=== PATIENT | female | born 1985 | race Caucasian/White ===

== ENCOUNTER → 2016-05-24 | Outpatient (CLI) | payer BC ==
[~2016-05-24] MED LIST: PRED20TA2 PO; PRENTAB26 PO
[2016-05-24 09:58] LABS: BASO % 0.5 %; BASO ABS # 0.03 K/uL (0-0.2); COMPLETE YES; EOS % 1.1 %; HEMATOCRIT 38.2 % (37-47); IG% 0.2 %; LYMPH % 25.5 %; MEAN CELL VOLUME 86.6 fL (80-100); MEAN CORPUSCULAR HEMOGLOBIN 30.2 pg (25-34); MEAN CORPUSCULAR HGB CONC 34.8 g/dl (32-36); MEAN PLATELET VOLUME 10.7 fL (7.4-10.4); MONO % 8.6 %; NEUT % 64.1 %; PLATELET COUNT 263 K/uL (130-400); RED BLOOD COUNT 4.41 M/uL (4.2-5.4); WHITE BLOOD COUNT 6.66 K/uL (4.8-10.8)
[2016-05-24 12:17] LABS: URINE APPEARANCE CLEAR (CLEAR); URINE BILIRUBIN NEG (NEG); URINE COLOR YELLOW; URINE NITRITE NEG (NEG); URINE SPECIFIC GRAVITY 1.025 (1.000-1.030); UROBILINOGEN NEG (NEG)
[2016-05-24 12:34] LABS: MANUAL MICROSCOPIC REQUIRED? NO; REVIEW REQ? NO
[2016-05-26 03:10] LABS: CHLAMYDIA TRACH RNA*** NOT DETECTED (NOT DETECTED); GC (NEIS GONORRHOEAE)RNA** NOT DETECTED (NOT DETECTED)
== END | disposition home or self-care (01) ==
LOC: C.LAB1850 09:09
PROVIDERS: ATTEND Obstetrics & Gynecology
DX: Z34.01 Encounter for supervision of normal first pregnancy, first trimester (principal)

== ENCOUNTER 2016-07-10 12:06 | Emergency (ER) | payer BC ==
[~2016-07-10] VITALS: Ht 165.1 cm; Wt 76.7 kg
[2016-07-10 12:10] VITALS: TEMP 36.6; Ht 165.1 cm; Wt 76.7 kg
[2016-07-10 12:54] VITALS: O2SAT 99
[2016-07-10 13:10] LABS: BASO % 0.1 %; BASO ABS # 0.01 K/uL (0-0.2); COMPLETE YES; EOS % 0.7 %; HEMATOCRIT 38.9 % (37-47); IG% 0.2 %; LYMPH % 18.7 %; LYMPH ABS # 1.77 K/uL (1.2-3.4); MEAN CELL VOLUME 86.6 fL (80-100); MEAN CORPUSCULAR HEMOGLOBIN 30.5 pg (25-34); MEAN CORPUSCULAR HGB CONC 35.2 g/dl (32-36); MEAN PLATELET VOLUME 9.9 fL (7.4-10.4); MONO % 7.6 %; NEUT % 72.7 %; PLATELET COUNT 252 K/uL (130-400); RED BLOOD COUNT 4.49 M/uL (4.2-5.4); WHITE BLOOD COUNT 9.49 K/uL (4.8-10.8)
[2016-07-10 13:28] LABS: C-REACTIVE PROTEIN 1.01 mg/dl (0-0.29); CALCIUM 8.2 mg/dl (8.5-10.1); CREATININE 0.61 mg/dl (0.60-1.20); POTASSIUM 3.7 mmol/L (3.5-5.1)
[2016-07-10 13:30] LABS: ALB/GLOB RATIO 0.8 (0.9-2)
[2016-07-10] MEDS ORDERED: PRED20TA2 PO (13:48)
--- NOTE | 2016-07-10 13:49 | EMERGENCY ROOM VISIT NOTE ---
History First contact with patient: 12:21 Chief Complaint: ALLERGIC REACTION Stated Complaint: SWELLING/ITCHING-POSS. ALLERGIC REACTION Nursing Triage Summary: pt c/o allergic reaction. c/o wrist and hands, lip swelling. yesterday thought was bug bites. has red ross on legs. pt reports al; weekned was gardening and yesterday thought was mosquitos bites. pt reports she is 15 weeks History of Present Illness The patient is a 31 year old female who presents to the Emergency Room via private vehicle with complaints of "swelling/itchingpossible allergic reaction". The patient states that she is 15 weeks . She notes that this past weekend she was gardening, and is certain that she did not become exposed to poison ingrid or bugs, and late Saturday night she notes that her right knee began to feel itchy. Then Saturday morning she noticed red little dots on the right anterior knee, and behind her ears. This morning she states that the right knee became very itchy and it seemed to spread up her thigh to her hips, shoulders and elbows. There is also bilateral redness noted to the knees. She states that she was wearing gloves in the garden. She denies any pain, she does states that her knee feels as if it is warm and then becomes cold. She is here today because 20 minutes prior to arrival she began with upper lip localized swelling. She spoke with her A/C TECHNICIAN nurse, of the [facility] physician group who instructed her to come here to the emergency department. She denies any new soaps, foods, or any new changes in her behavior. She denies any trouble breathing, chest pain, shortness of breath, fevers or chills. She did take 2 Benadryl 20 minutes prior to arrival. She denies any vaginal bleeding, cramps or spotting. Review of Systems A complete 10-point Review of Systems was discussed with the patient, with pertinent positives and negatives listed in the History of Present Illness. All remaining Review of Systems questions can be considered negative unless otherwise specified. Past Medical/Surgical History No pertinent past medical history Family History Diabetes, heart disease, cancer Social History Smoking Status: Never Smoker Social History: Patient was at home with Current/Historical Medications Scheduled Prednisone (Prednisone Tab), 2 TAB PO DAILY Allergies Coded Allergies: No Known Allergies (Unverified , 5/23/17) Physical Exam Vital Signs Date Time Temp Pulse Resp B/P Pulse Ox O2 Delivery O2 Flow Rate FiO2 07/10/16 14:23 68 18 107/65 100 07/10/16 13:36 71 18 110/61 99 Room Air 07/10/16 12:54 99 Room Air 07/10/16 12:10 36.6 83 18 121/80 99 Room Air Physical Exam VITAL SIGNS - Vital signs and nursing notes were reviewed. afebrile, normotensive, non-tachycardic and saturating 99%. GENERAL -31-year-old female appearing her stated age who is in no acute distress. Communicates well with provider and answers questions appropriately. SKIN - there is a small non-raised patch of erythema overlying the anterior aspect of the distal wrist. There is also very minimal edema noted to a very small 1 cm x 1 cm region of the anterior lip. HEAD - NC/AT. There are small punctate nonraised erythematous regions that are subcentimeter in nature scattered throughout the arms. EYES - Sclera anicteric. Palpebral conjunctiva pink and moist with no injection noted. EARS - No deformities of external structures noted on gross examination bilaterally. NOSE - Midline and without cyanosis. No epistaxis or purulent drainage noted. MOUTH/OROPHARYNX - Without perioral cyanosis. Buccal mucosa pink and moist and without leukoplakia. Tongue midline with equal elevation of palate bilaterally. No tonsillar hypertrophy, erythema, or exudates noted. Good Dentition noted. NECK - Neck with FROM. Supple to palpation. No lymphadenopathy noted. No nuchal rigidity, Airways patent without edema. There is a small amount of edema of the upper lip centrally. LUNGS - Chest wall symmetric without accessory muscle use, intercostals retractions, or central cyanosis. Normal vesicular breath sounds CTA B/L. No wheezes, rales, or rhonchi appreciated. CARDIAC - RRR with S1/S2. No murmur, rubs, or gallops appreciated. ABDOMEN - Abdominal contour without pulsations or visible masses. BS normoactive all four quadrants. No tenderness, palpable masses, hepatosplenomegaly, or ascites noted. EXTREMITIES - No clubbing or peripheral cyanosis. No pretibial edema present. +5 /5 strength noted in UE/LE bilaterally. NEUROLOGIC - Cranial nerves II through XII grossly intact. Medical Decision & Procedures Laboratory Results 07/10/16 12:50 Red Blood Count 4.49, Mean Corpuscular Volume 86.6, Mean Corpuscular Hemoglobin 30.5, Mean Corpuscular Hemoglobin Concent 35.2, Mean Platelet Volume 9.9, Neutrophils (%) (Auto) 72.7, Lymphocytes (%) (Auto) 18.7, Monocytes (%) (Auto) 7.6, Eosinophils (%) (Auto) 0.7, Basophils (%) (Auto) 0.1, Neutrophils # (Auto) 6.90, Lymphocytes # (Auto) 1.77, Monocytes # (Auto) 0.72, Eosinophils # (Auto) 0.07, Basophils # (Auto) 0.01 07/10/16 12:50 Test 07/10/16 12:50 White Blood Count 9.49 K/uL (4.8-10.8) Red Blood Count 4.49 M/uL (4.2-5.4) Hemoglobin 13.7 g/dL (12.0-16.0) Hematocrit 38.9 % (37-47) Mean Corpuscular Volume 86.6 fL (80-100) Mean Corpuscular Hemoglobin 30.5 pg (25-34) Mean Corpuscular Hemoglobin Concent 35.2 g/dl (32-36) Platelet Count 252 K/uL (130-400) Mean Platelet Volume 9.9 fL (7.4-10.4) Neutrophils (%) (Auto) 72.7 % Lymphocytes (%) (Auto) 18.7 % Monocytes (%) (Auto) 7.6 % Eosinophils (%) (Auto) 0.7 % Basophils (%) (Auto) 0.1 % Neutrophils # (Auto) 6.90 K/uL (1.4-6.5) Lymphocytes # (Auto) 1.77 K/uL (1.2-3.4) Monocytes # (Auto) 0.72 K/uL (0.11-0.59) Eosinophils # (Auto) 0.07 K/uL (0-0.5) Basophils # (Auto) 0.01 K/uL (0-0.2) RDW Standard Deviation 41.6 fL (36.4-46.3) RDW Coefficient of Variation 13.1 % (11.5-14.5) Immature Granulocyte % (Auto) 0.2 % Immature Granulocyte # (Auto) 0.02 K/uL (0.00-0.02) Erythrocyte Sedimentation Rate 12 mm/hr (0-21) Anion Gap 8.0 mmol/L (3-11) Est Creatinine Clear Calc Drug Dose 136.9 ml/min Estimated GFR () 140.0 Estimated GFR (Non- 120.8 BUN/Creatinine Ratio 10.0 (10-20) Calcium Level 8.2 mg/dl (8.5-10.1) Total Bilirubin 0.3 mg/dl (0.2-1) Aspartate Amino Transf (AST/SGOT) 13 U/L (15-37) Alanine Aminotransferase (ALT/SGPT) 17 U/L (12-78) Alkaline Phosphatase 55 U/L (45-117) C-Reactive Protein 1.01 mg/dl (0-0.29) Total Protein 6.9 gm/dl (6.4-8.2) Albumin 3.1 gm/dl (3.4-5.0) Globulin 3.8 gm/dl (2.5-4.0) Albumin/Globulin Ratio 0.8 (0.9-2) Medical Decision Patient was seen and evaluated as above. After obtaining a thorough history and physical examination IV access was initiated and the above workup was performed. I wanted to establish IV access case the patient would have anaphylaxis. Basic blood work was drawn as well as inflammatory markers. CBC reveals no leukocytosis or anemia. ESR is normal at 12. CMP reveals chloride 109, BUN low at 6, calcium low at 8.2, C-reactive protein high at 1.01. Albumin low at 3.1. No emergent findings on the CMP patient was reevaluated with no worsening of her symptoms. Benefits versus risk of administered prednisone was discussed with the patient as well as my attending. The patient was fully made aware that prednisone is category D. The patient was provided with a short-term prescription, she noted only if her symptoms worsened which he take his medication. She is to continue the Benadryl for the next few days. She was educated upon the importance of follow-up. She was educated upon today's findings, educated upon worrisome symptoms which to return , had questions prior to discharge and was discharged, condition. I suspect that her symptoms today are likely secondary to contact dermatitis as she was kneeling in the garden. A clear etiology for the inflammation of the upper lip is not available at this time however I do not suspect anaphylaxis. Patient's O2 sat was 100% prior to departure. In evaluation treatment this patient following differential diagnoses were entertained: Anaphylaxis, contact dermatitis, allergic reaction, vasculitis, among others. Impression Primary Impression: Allergic reaction Additional Impression: Contact dermatitis Departure Information Dispostion Home / Self-Care Condition GOOD Prescriptions Prednisone (Prednisone Tab) 20 Mg Tab 2 TAB PO DAILY for 5 Days, #10 TAB Prov: David Valle PA-C 07/10/16 Referrals No Doctor, Assigned (PCP) Patient Instructions [facility] Additional Instructions You have been treated in the Emergency Department for an Allergic Reaction. You have been treated and monitored in the Emergency Department appropriately. You should take Benadryl (diphenhydramine) according to the package insert. This medication is [id number] and you will NOT need a prescription to purchase this at your local pharmacy. This is to prevent a rebound allergic reaction in the event that allergens are still present in your system. You have been prescribed Prednisone 40 mg to be taken orally once a day for the next 5days. This is an anti-inflammatory medicine to be used to help minimize your symptoms. You should take the COMPLETE course of the medication. ONLY IF WORSENING OF SYMPTOMS WE DISCUSSED THIS MAY BE HARMFUL DURING . As with every Emergency Department visit, you should follow-up with your primary care provider/OBGYN in 2-3 days for reevaluation. Return to the Emergency Department if your current symptoms worsen despite treatment course outlined above, or if you develop any of the following symptoms : wheezing, tongue or face swelling, tightness in your throat, shortness of breath, vaginal spotting, cramping, or fainting. Please return to the emergency department with any new/concerning symptoms. ER PHONE NUMBER: [phone] Problem Qualifiers
[2016-07-10 14:23] VITALS: BP 107/65; PULSE 68; O2SAT 100
== END 2016-07-10 14:24 | disposition home or self-care (01) ==
LOC: C.EDB 12:07 → C.EDC 14:24
DX: L23.9 Allergic contact dermatitis, unspecified cause (principal); O99.711 Diseases of the skin and subcutaneous tissue complicating pregnancy, first trimester; Z3A.15 15 weeks gestation of pregnancy; Z83.3 Family history of diabetes mellitus; Z80.9 Family history of malignant neoplasm, unspecified

== ENCOUNTER → 2016-07-17 | Outpatient (CLI) | payer BC ==
[~2016-07-17] MED LIST changes: -PRED20TA2 PO
[2016-07-17 16:12] LABS: GTGD 50 Grams
[2016-07-21 09:35] LABS: AFP CONCENTRATION 40.2 NG/ML; AFP MULTIPLE OF MEDIAN 1.42; AFPTS GESTATIONAL AGE 15.6 WEEKS; AFPTS INSULIN DEP DIABETIC? NO; AFPTS MATERNAL WT 169 LBS; ALPHA-FETOPROTEIN RACE CAUCASIAN=W; ESTRIOL MULTIPLE OF MEDIAN 1.04; HISTORY OF NTD NO; INHIBIN A 152 PG/ML; INHIBIN A MOM 0.92; REPEAT SAMPLE? NO; hCG MULTIPLE OF MEDIAN 0.94
== END | disposition home or self-care (01) ==
LOC: C.LAB1850 14:16
PROVIDERS: ATTEND Obstetrics & Gynecology
DX: Z34.02 Encounter for supervision of normal first pregnancy, second trimester (principal)

== ENCOUNTER → 2016-10-16 | Outpatient (CLI) | payer BC ==
[2016-10-16 17:22] LABS: HEMATOCRIT 37.1 % (37-47)
[2016-10-16 18:05] LABS: GTGD 50 Grams
[2016-10-16 18:44] LABS: URINE APPEARANCE CLEAR (CLEAR); URINE BILIRUBIN NEG (NEG); URINE COLOR YELLOW; URINE EPITHELIAL CELL AUTO >30 /lpf (0-5); URINE NITRITE NEG (NEG); URINE PH 8.5 (4.5-7.5); URINE SPECIFIC GRAVITY 1.015 (1.000-1.030); UROBILINOGEN NEG (NEG)
[2016-10-16 18:50] LABS: MANUAL MICROSCOPIC REQUIRED? NO; REVIEW REQ? NO
== END | disposition home or self-care (01) ==
LOC: C.LAB1850 15:30
PROVIDERS: ATTEND Obstetrics & Gynecology
DX: Z34.03 Encounter for supervision of normal first pregnancy, third trimester (principal)

== ENCOUNTER → 2016-10-24 | Outpatient (CLI) | payer BC | END | disposition home or self-care (01) | LOC: C.LAB1850 07:17 | PROVIDERS: ATTEND Obstetrics & Gynecology | DX: O28.1 Abnormal biochemical finding on antenatal screening of mother (principal); Z3A.00 Weeks of gestation of pregnancy not specified ==

== ENCOUNTER → 2016-12-13 | Outpatient (CLI) | payer BC | END | disposition home or self-care (01) | LOC: C.LABSPEC 17:39 | PROVIDERS: ATTEND Obstetrics & Gynecology | DX: Z34.03 Encounter for supervision of normal first pregnancy, third trimester (principal) ==

== ENCOUNTER 2016-12-31 15:31 | Inpatient (IN) | payer BC ==
[~2016-12-31] VITALS: Ht 165.1 cm; Wt 86.2 kg
[2016-12-31] MEDS ORDERED: LACTATED RINGER'S 1000ML 1,000 ML IV SCH (16:11)
[2016-12-31] MEDS ORDERED: LACTATED RINGER'S 1000ML 1,000 ML IV PRN (16:11)
[2016-12-31 16:44] LABS: HEMATOCRIT 39.5 % (37-47); MEAN CELL VOLUME 89.2 fL (80-100); MEAN CORPUSCULAR HEMOGLOBIN 31.8 pg (25-34); MEAN CORPUSCULAR HGB CONC 35.7 g/dl (32-36); MEAN PLATELET VOLUME 9.9 fL (7.4-10.4); PLATELET COUNT 205 K/uL (130-400); RED BLOOD COUNT 4.43 M/uL (4.2-5.4); WHITE BLOOD COUNT 9.95 K/uL (4.8-10.8)
[2016-12-31] MEDS ORDERED: PRENTAB26 PO (16:55)
[2016-12-31 16:56] VITALS: Ht 165.1 cm; Wt 86.2 kg
[2016-12-31] MEDS ORDERED: LACTATED RINGER'S 1000ML 500 ML IV PRN (17:54)
[2016-12-31] MEDS ORDERED: OXYTOCIN 30 UNITS/500ML NSS IV PRN (18:00)
[2017-01-01] MEDS ORDERED: DIPHTHERIA/TETANUS/PERTUSSIS 0.5 ML SYR/VIAL IM. ONE (08:15)
[2017-01-01] MEDS ORDERED: ACETAMINOPHEN 325 MG TAB PO PRN (08:15)
[2017-01-01] MEDS ORDERED: ACETAMINOPHEN/CODEINE 300/30MG TAB PO PRN ×2 (08:15)
[2017-01-01] MEDS ORDERED: LANOLIN OINT EXT PRN ×2 (08:15)
[2017-01-01] MEDS ORDERED: HYDROCORTISONE ACETATE 25 MG SUPP PR PRN (08:15)
[2017-01-01] MEDS ORDERED: SUPERCREAM 0.870 % 15GM JAR EXT PRN (08:15)
[2017-01-01] MEDS ORDERED: OXYTOCIN 30 UNITS/500ML NSS IV PRN (08:15)
[2017-01-01] MEDS ORDERED: BENZOCAINE 20% AER SPR 82.5 GM CAN EXT PRN (08:15)
--- NOTE | 2017-01-01 08:30 | DELIVERY SUMMARY ---
DATE OF OPERATION: 01/01/2017 The patient dilated to complete and pushed to deliver a viable female infant, Apgars 9 and 9 via over second-degree perineal laceration. Shoulders and body delivered through with maternal expulsive efforts. Cords clamped once pulsation stopped. Infant to maternal abdomen. Cord doubly clamped and cut. Laceration was repaired in the usual fashion after 1% local lidocaine anesthesia with 3-0 Vicryl. Cervix and sulci intact. At approximately 20 minutes, placenta attempted to be delivered. Cord ultimately avulsed and placenta had to be manually extracted. Uterus swept x1 and no remaining products of conception. Dilute Pitocin began and hemostasis was adequate. EBL 300 mL. Mother and baby stable on recovery. I attest to the content of the Intraoperative Record and any orders documented therein. Any exception s are noted below.
[2017-01-01 11:25] VITALS: BP 118/78; PULSE 103; TEMP 36.9; O2SAT 96
[2017-01-01 16:45] VITALS: BP 116/80; PULSE 106; TEMP 36.6
[2017-01-01] MEDS: DOCUSATE SODIUM 100 MG CAP PO SCH (20:01)
[2017-01-01] MEDS: IBUPROFEN 600 MG TAB PO PRN (20:04)
[2017-01-01 20:30] VITALS: BP 115/75; PULSE 102; TEMP 36.7
[2017-01-01 23:40] VITALS: BP 118/83; PULSE 84; TEMP 36.4; O2SAT 98
[2017-01-02 03:00] VITALS: BP 118/78; PULSE 86; TEMP 36.8; O2SAT 97
--- NOTE | 2017-01-02 06:56 | OB/GYN Progress Note ---
ELECTRONIC SCALE ASSEMBLER AND TESTER Progress Note Date of Service Jan 02, 2017. Subjective conversation w/ patient, physical exam, chart review, lab review Ambulation: ambulating normally Voiding: no voiding problems Passing Gas: Yes Diet Tolerance: Regular Diet Lochia: Moderate Feeding Type: Breast Feeding Pain: 3/10 pain with movement Review of Systems Constitutional: No fever, No chills Respiratory: No shortness of breath Cardiac: No chest pain Abdomen: No nausea, No vomiting Female : No dysuria Objective Vital Signs Date Time Temp Pulse Resp B/P (MAP) Pulse Ox O2 Delivery O2 Flow Rate FiO2 01/02/17 03:00 36.8 86 16 118/78 (91) 97 Room Air 01/01/17 23:40 36.4 84 18 118/83 (95) 98 Room Air 01/01/17 23:40 98 Room Air 01/01/17 20:30 36.7 102 16 115/75 (88) Room Air 01/01/17 20:30 Room Air 01/01/17 16:45 Room Air 01/01/17 16:45 36.6 106 16 116/80 (92) Room Air 01/01/17 11:25 36.9 103 16 118/78 (91) 96 Room Air 01/01/17 11:25 Room Air Physical Exam General Appearance: WELL-APPEARING Respiratory/Chest: lungs clear, normal breath sounds Cardiovascular: regular rate, rhythm Abdomen: normal bowel sounds, non tender, soft Fundus: Firm, Relation to Umbilicus (2 FB below) Extremities: non-tender, no pedal edema Assessment and Plan Day Number: 1 Continue Routine Care: Resident Physician Supervision Note: I interviewed and examined the patient. Discussed with Dr. Cruz and agree with findings and plan as documented in the note. Any exceptions or clarifications are listed here: [None] Documented By: Marisela Mcintyre A/P: This is a 31 y/o female, , s/p [normal vaginal delivery] day 1. She is ambulating and clinically stable to discharge - Vital signs are reviewed and WNL (Tmax 36.9 ) - Last Hgb 14.1 - Blood type B+, GBS neg, Rubella Immune - No signs of depression. - Routine care - Discussed resting, feeding, pain control, mastitis, control, follow up in 6 weeks and reasons to call sooner, if necessary. - Continue with pain medication as needed, and continue vitamins. - Encourage breast feeding and educate about breast feeding - Patient understands and keen for home. - Plan to discharge home Resident Involvement: Resident Care Provided Care Provided: OB Delivery
--- NOTE | 2017-01-02 06:57 | Discharge Instructions ---
Discharge Instructions Date of Service Jan 02, 2017. Admission Reason for Admission: Labor Check Discharge Discharge Diagnosis / Problem: after vaginal delivery Discharge Goals Goal(s): Routine recovery after delivery Medications Continue Dispensed Medications: supercream, dermaplast, tucks, lansinoh Activity Recommendations Activity Limitations: per Instructions/Follow-up section . Instructions / Follow-Up Instructions / Follow-Up ACTIVITY RECOMMENDATIONS: * Gradual return to full activity over the next 2-3 weeks. * No lifting - nothing heavier than baby over the next 2-3 weeks. * Do not engage in vigorous exercise, sexual activity or sports until cleared by your physician. * Do not drive or operate any motorized equipment until cleared by your physician. * You may shower/bathe daily. MEDICATIONS: For discomfort or pain, you may use Acetaminophen (Tylenol), Ibuprofen (Advil), or Naproxen (Aleve) following the package directions. For constipation you may use Colace following the package directions. BREAST CARE: If you are not breast feeding: * Wear a supportive bra 24 hours a day for one to two weeks. * Avoid stimulating your breasts and nipples as much as possible during the first few weeks after delivery. * When taking a shower, have the warm water hit your back, not breasts. * When your breasts feel full, apply ice packs. Usually three to four times a day helps ease the discomfort. * Take a mild pain medication (Tylenol / Motrin) when you are uncomfortable. If breast feeding: * Use breast milk to lubricate nipples. Lansinoh cream may be used for sore nipples. You do not need to remove cream prior to breast feeding. If using a different brand of cream, check the label for directions regarding removal of cream prior to nursing. * Wear a supportive bra. * If having problems with breasts or breast feeding, call a technical sales consultant or your health care provider. EPISIOTOMY CARE: After delivery, if you have an episiotomy (stitches), the following steps will ease discomfort and aid healing. * For the first 24 hours after delivery, place ice packs next to your episiotomy to help reduce swelling. * After the first 24 hour-period, sitz baths, either portable or in the tub, are suggested. A shower with a shower arm sprayed over the episiotomy may be comforting. * Lesley care should be done after each voiding and bowel movement. Squirt warm water from a plastic bottle over the perineum (region of the body between the anus and urinary opening) and pat dry. * Use Dermoplast to ease discomfort. Shake container. Bandy directly over the episiotomy. Place a Tucks on a clean sanitary pad next to your episiotomy. SPECIAL CARE INSTRUCTIONS: When you are discharged from the hospital, it is important for you to follow the instructions listed below: * During the first week at home, you should be able to care for yourself and your baby. In addition, the usual light household activities are encouraged. * Limit your activities to the way you feel. Do not try to clean the house or move furniture. Be sensible. * If you actively engage in sports and have done so up until the time of your delivery, you may resume these activities as soon as you feel able. This may take up to one month or even longer. Use good judgment. * Continue to take your vitamins for at least six weeks after the of your baby. * Your diet need not be limited unless you were on a special diet before your delivery. Breast-feeding mothers need around 2500 calories per day and at least 64-80 ounces of fluid per day (8 to 10 glasses). * You should eat foods from the four major food groups. Crash diets or fad diets are to be avoided. Eating lean meats, fresh fruits and vegetables, low-fat dairy products, high fiber foods and a regular exercise program, will help you get back to your pre- weight without putting your health at risk. * Constipation is sometimes a problem after delivery. Take a mild laxative as needed. If breast feeding, Milk of Magnesia is acceptable to use. You may use a suppository or Fleets enema if no episiotomy. * A daily shower or tub bath is suggested. Be sure to thoroughly and gently dry the perineum. * A bloody vaginal discharge will usually continue until around four weeks post . A small amount of bleeding may continue for as long as six weeks. Vaginal discharge changes from the bright red bleeding after delivery to pink then brownish and finally yellowish-pink before becoming white and disappearing. * Bleeding may increase with activity. Your first period may come in 4-8 weeks. If you are breast feeding, your period may be delayed even longer. * [place] (sex) can begin whenever both you and your partner feel comfortable and do not have any form of genital infection. It is recommended that you wait at least six weeks for internal and external healing to occur. If you have questions, please talk to your health care practitioner. A condom should be used to prevent infection and . * Foreplay, gentle intercourse and lubrication is very important the first several times to prevent pain. A water-based lubricant such as K-Y jelly or Astroglide may be used. * If you have RH negative blood and your baby is RH positive, you will receive RHOGAM by injection prior to discharge. The nurse will give you a card to keep with you that has the date and place that you received RHOGAM after delivery. * During your care, you had a Rubella screen done to check for the presence of rubella antibodies in your blood. If your test was negative, you will receive a Rubella vaccine prior to discharge. This vaccine may cause a fever, soreness at the injection site and flu-like symptoms. If these symptoms persist, notify your health care practitioner. is not advised for one month after a Rubella vaccine. * Verbalizes understanding of car seat law as reviewed with patient nursing. * Car Seat hand-out given and reviewed with patient by nursing. * Shaken baby information reviewed with patient by nursing. Call you doctor if: * Heavy bleeding (saturating several pads an hour) or passing clots the size of your fist. * A fever >101 degrees F (38.3 degrees C) on two occasions four hours apart and /or chills. * Unusual pain in the pelvic or vaginal areas. * "Baby Blues" lasting longer than two weeks. If you have any questions or concerns, call your health care practitioner at . FOLLOW UP VISIT: * Please call the office at to schedule a 6 week examination. It is important you keep this appointment. It is important for you to make arrangements for either yearly or twice yearly check-ups thereafter. Current Hospital Diet Patient's current hospital diet: Regular OB Diet Discharge Diet Recommended Diet: Regular Diet Pending Studies Studies pending at discharge: no Medical Emergencies . Who to Call and When: Medical Emergencies: If at any time you feel your situation is an emergency, please call 911 immediately. . Non-Emergent Contact Non-Emergency issues call your: Control Cabinet Assembler Call Non-Emergent contact if: temperature is above 101, your pain is not controlled . . "Provider Documentation" section prepared by Abhishek Cruz. . VTE Core Measure Inpt VTE Proph given/why not?: Treatment not indicated
[2017-01-02] MEDS: DOCUSATE SODIUM 100 MG CAP PO SCH (07:28)
[2017-01-02] MEDS: IBUPROFEN 600 MG TAB PO PRN ×2 (07:29→12:17)
[2017-01-02 07:30] VITALS: BP 106/72; PULSE 77; TEMP 36.2; O2SAT 97
[2017-01-02 09:44] VITALS: BP 106/72; PULSE 77; TEMP 36.2
[2017-01-02 13:48] VITALS: BP_DIAS 72; PULSE 77; TEMP 36.2
== END 2017-01-02 13:48 | disposition home or self-care (01) | DRG 775 ==
LOC: C.LD 15:31 → C.OPB 15:31 → C.LD 16:13 → C.OPB 16:13 → C.OBG 01-01 11:01 → EDSTATUS 01-04 15:29
PROVIDERS: ADMIT Obstetrics & Gynecology; ATTEND Obstetrics & Gynecology
PROC: 0KQM0ZZ Repair Perineum Muscle, Open Approach (ICD-10-PCS; principal; 2017-01-01)
PROC: 10E0XZZ Delivery of Products of Conception, External Approach (ICD-10-PCS; principal; 2017-01-01)
DX: O42.92 Full-term premature rupture of membranes, unspecified as to length of time between rupture and onset of labor (principal); O70.1 Second degree perineal laceration during delivery; Z3A.39 39 weeks gestation of pregnancy; Z37.0 Single live birth

== ENCOUNTER → 2017-02-13 | Outpatient (CLI) | payer BC | END | disposition home or self-care (01) | LOC: C.PAPS 11:15 | PROVIDERS: ATTEND Obstetrics & Gynecology | DX: Z01.419 Encounter for gynecological examination (general) (routine) without abnormal findings (principal) ==

== ENCOUNTER 2018-12-04 07:31 | Inpatient (IN) ==
[2018-12-04] MEDS ORDERED: OXYTOCIN 30 UNITS/500 ML BAG IV PRN ×3 (07:54→14:49)
[2018-12-04] MEDS ORDERED: LACTATED RINGER'S 1,000 ML IV PRN (07:54)
[2018-12-04 08:13] LABS: Hematocrit (blood only) 38.4 % (37-47); Hemoglobin 13.1 g/dL (12.0-16.0); Mean Corpuscular Hemoglobin 30.4 pg (25-34); Mean Corpuscular Volume 89.1 fL (80-100); Mean Platelet Volume 10.1 fL (7.4-10.4); Platelet Count 192 K/uL (130-400); RDW Coefficient of Variation 13.4 % (11.5-14.5); RDW Standard Deviation 43.4 fL (36.4-46.3); Red Blood Count 4.31 M/uL (4.2-5.4); White Blood Count 8.45 K/uL (4.8-10.8)
[2018-12-04 08:15] LABS: Mean Corpuscular Hgb Conc 34.1 g/dL (32-36)
--- NOTE | 2018-12-04 08:53 | History & Physical Report ---
Date of Service December 04, 2018 Assessment & Plan (1) Encounter for induction of labor: (2) Post term at 41 weeks gestation: admit, iv, labs, pitocin, plan arom when able. reviewed her plan, will try to honor what i can. plans hypnobirth. History of Present Illness Chief Complaint: induction for postdates. Primary Care Provider: Nichole Link, DO 33yo with cc of planned induction for postdates. no rom, vb. +fm. no ctx pnc c/b 1. postdates 2. echo done due to missed neto and wnl but incomplete, can consider pp pnl rh pos, ri, gbs neg obh: x 1 gynh: nl paps, no stds pmh: migraines psh: wisdom teeth sh: no tob/etoh/drugs fh: no marylin anom or mr Allergies Allergy/AdvReac Type Severity Reaction Status Date / Time No Known Allergies Allergy Verified 12/04/18 07:54 Home Medications Home Medications Medication Instructions Recorded Confirmed Type PNV cmb#95-ferrous fumarate-FA 1 tab PO DAILY 12/04/18 12/04/18 History [] calcium carbonate [Tums] 200 mg PO QID PRN 12/04/18 12/04/18 History Patient History Social History Preferred Language: French Remelt Sugar Boiler Required: No Beliefs That Will Affect Care: None marital status: Current Living Situation: Spouse and Family Current Living Situation Comment: lives with and 2 yo daughter Other Information That Helps Us Care for You: Yes ( plan) Feels Safe at Home: Yes Safety Concerns: Feels Safe At This Time Smoking Status: Never smoker Do You Dip or Chew Tobacco: No ; Second Hand Exposure: No ; Tobacco Cessation Education Requested by Patient: No Hx Alcohol Use: No Hx Substance Use: No Review of Systems no fever no change in stools no abnormal vaginal bleeding Physical Exam Constitutional: WD/WN, vitals as above Respiratory: normal respiratory effort, lungs clear to auscultation Cardiovascular: Rate/Rhythm: regular rate and regular rhythm Gastrointestinal (Abdomen): Percussion/Palpation: abdomen soft (gravid) Neurologic: grossly normal Psychiatric: A+Ox3, euthymic affect Genitourinary: OB Exam Abdomen: + estimated weight (7-8#) Manual OB Exam: + cervical dilation (3-4), + cervical effacement 50% and + station -2 OB Exam Monitor Tracing: + external FHT monitor used (140 mod variability), + external uterine monitor used (irrit, and irreg ctx) and + category I Results & Data Vital Signs (Past 12 Hours) Vital Signs Pulse BP 12/04/18 08:50 96 H 114/78 12/04/18 07:45 125 H 108/77
--- NOTE | 2018-12-04 10:42 | Labor Progress Brief Note ---
Date of Service December 04, 2018 Subjective Reason For Note: Routine Evaluation feeling some ctx. pitocin at 5. Assessment & Plan (1) Post term at 41 weeks gestation: (2) Encounter for induction of labor: see how arom advances labor, c/w pitocin, categ 1 fetus. Physical Exam Constitutional: WD/WN, vitals as above Genitourinary: Manual OB Exam: + cervical dilation 4 cm, + cervical effacement 60%, + station -2 and + amniotic fluid (arom) clear OB Exam Monitor Tracing: + external FHT monitor used (130 moderate variability), + external uterine monitor used (q2 ), + category I and + normal FHT variability pit at 5 Results & Data Vital Signs (Past 12 Hours) Vital Signs Temp Pulse Resp BP 12/04/18 09:54 81 100/63 12/04/18 08:50 96 H 114/78 12/04/18 07:45 98.1 F 125 H 16 108/77
--- NOTE | 2018-12-04 13:18 | Labor Progress Brief Note ---
Date of Service December 04, 2018 Subjective Reason For Note: Requested By Patient wanting cx exam. pitocin infusing. Assessment & Plan (1) Post term at 41 weeks gestation: (2) Encounter for induction of labor: c/w pit. categ 1. good cx change. Physical Exam Constitutional: WD/WN, vitals as above Genitourinary: Manual OB Exam: + cervical dilation 7 cm, + cervical effacement 80% and + station -1 OB Exam Monitor Tracing: + external FHT monitor used (135 mod variability), + external uterine monitor used (q2), + category I and + normal FHT variability pit at 13 Results & Data Vital Signs (Past 12 Hours) Vital Signs Temp Pulse Resp BP 12/04/18 12:40 98.2 F 20 12/04/18 12:39 68 20 103/70 12/04/18 11:49 86 114/70 12/04/18 10:40 85 106/66 12/04/18 10:39 98.6 F 12/04/18 09:54 81 100/63 12/04/18 08:50 96 H 114/78 12/04/18 07:45 98.1 F 125 H 16 108/77
[2018-12-04] MEDS ORDERED: ACETAMINOPHEN W/CODEINE #3 1 TAB PO PRN (14:11)
[2018-12-04] MEDS ORDERED: ACETAMINOPHEN 325 MG TAB PO PRN (14:11)
--- NOTE | 2018-12-04 14:14 | Delivery Summary ---
Vaginal Delivery Summary Date of Service December 04, 2018 The patient dilated to complete and pushed to deliver a viable male infant s 8 and 9 via over intact perineum. Mouth and nose bulb suctioned at perineum. Shoulders and body delivered with ease. Infant was vigorous and crying at . Cord clamped at 60 seconds of life, no pulsations of cord and to maternal abdomen where the cord was then doubly clamped and cut. Placenta delivered spontaneously and intact, three-vessel cord. Hemostasis achieved with dilute pitocin and uterine massage. Cervix and sulci intact. Small separation at perineum of the skin that was hemostatic and then not repaired. EBL 300 cc. Mother and baby stable recovery.
[2018-12-04] MEDS: IBUPROFEN 600 MG TAB PO PRN ×3 (14:20→23:15)
[2018-12-04] MEDS ORDERED: DIPHTHERIA/TETANUS/PERTUSSIS 0.5 ML SYR/VIAL IM ONE (14:49)
[2018-12-04] MEDS ORDERED: HYDROCORTISONE ACETATE 25 MG SUPP PR PRN (14:49)
[2018-12-04] MEDS ORDERED: BENZOCAINE 20% AER SPR 82.5 GM CAN EXT PRN (14:49)
[2018-12-04] MEDS ORDERED: SUPERCREAM 0.870% 15 GM JAR EXT PRN (14:49)
[2018-12-04] MEDS ORDERED: OXYTOCIN 20 UNITS in LACTATED RINGER'S 1,000 ML IV SCH ×2 (15:15→16:45)
[2018-12-04] MEDS: DOCUSATE SODIUM 100 MG CAP PO SCH (19:53)
--- NOTE | 2018-12-05 05:14 | Obstetrical Progress Note ---
Date of Service December 05, 2018 Assessment & Plan (1) : 33 yo s/p VD @ 41w3d -PPD# 1 - GBS negative, Blood Type B+ - incomplete ECHO, will need PP ECHO for baby - Feels well today. Eating well, voiding well, ambulating well. - Pain well controlled. - Routine post care - After discharge will have [address] Gonzalez. Supervising Physician Co-Signing Physician Notes Resident Physician Supervision Note: I was present with Dr. Beck during the history and exam. I discussed the case with the resident and agree with the findings and plan as documented in the note. Any exceptions or clarifications are listed here: doing well, ready for d/c home today, intructions reviewed. f/u 6 wk pp check. Documented By: Bonnie Gonzalez MD, FACOG Subjective Doing well this morning. is going well. Pain is well controlled 2/10 with Motrin. Bleeding is slightly more than a heavy period but improving. Review of Systems Review of Systems: Denies fever, chills, sweats Denies shortness of breath, difficulty breathing, chest pain, palpitations, chest pressure. Denies breast pain. Denies dysuria. Denies headache. Physical Exam Physical Exam: General: Alert, oriented. No acute distress. Cardiac: Regular rate and rhythm, no murmurs/rubs/gallops. Respiratory: Clear to auscultation anterior and posteriorly, no wheezes/rales/rhonchi. No increased work of breathing. Symmetrical chest rise. No respiratory distress. Abdomen: Soft, nontender, nondistended. Bowel sounds present. Uterus: Uterine fundus firm, palpable at the umbilicus. Lower Extremities: No lower extremity edema or swelling. No deep calf pain. Ryan's negative bilaterally. Results & Data Vital Signs (Past 12 Hours) Vital Signs Temp Pulse Resp BP Pulse Ox 12/05/18 05:00 36.6 C 83 16 105/69 96 12/04/18 23:00 36.6 C 83 16 109/69 97 12/04/18 19:25 36.8 C 87 16 114/70 96 PG Care Time/CCT Total # of Minutes Spent Total Time Spent with Patient: Total time spent is greater than 50% in coordination of care (as documented) at patient's floor/unit and/or counseling patient: Resident Activity Tracking Resident Involvement: Resident Care Provided Care Provided: OB Delivery
[2018-12-05] MEDS: DOCUSATE SODIUM 100 MG CAP PO SCH (09:12)
[2018-12-05] MEDS: IBUPROFEN 600 MG TAB PO PRN ×2 (09:12→13:39)
== END 2018-12-05 18:30 | disposition home or self-care (01) | DRG 807 ==
LOC: 4S1 07:31 → 4S2 16:50